=== PATIENT | male | born 2000 | race Native Hawaiian/Other Pacific Islander ===

== ENCOUNTER 2018-01-22 03:20 | Emergency (ER) | payer OTHER ==
[~2018-01-22] VITALS: Ht 175.3 cm; Wt 80.0 kg
[2018-01-22 03:23] VITALS: BP 131/67; PULSE 63; RESP 16; TEMP 97.4; O2SAT 97
[2018-01-22] MEDS ORDERED: IBUPROFEN 800 MG TAB PO ONE (04:00)
[2018-01-22] MEDS ORDERED: DICL75TA PO (04:08)
--- NOTE | 2018-01-22 04:08 | PD ---
HPI Chief Complaint: Injury Time Seen by Provider: 03:36 Travel History International Travel<30 days: No Contact w/Intl Traveler<30days: No Traveled to known affect area: No History of Present Illness HPI 17-year-old male presents emergency department with complaints of right calf pain after a skydiving injury earlier yesterday afternoon. Patient states that he was taking a tandem dive when they landed he bent his left leg up underneath him. He states that he had pain in the posterior portion of his calf up into his knee. Since then it has persisted. He denied any popping or cracking. He denies any pain in his foot ankle knee or hip. He denies any acute sensory changes. He did not hurt his head, neck or back. Symptoms are mild but become moderate with movement and attempting to walk. PFSH Past Medical History Medical History: Denies Significant Hx Past Surgical History Surgical History: No Previous Surgery Social History Alcohol Use: No Tobacco Use: No Substance Use: No Allergies-Medications (Allergen,Severity, Reaction): Coded Allergies: No Known Allergies (Unverified , 01/22/18) Review of Systems General / Constitutional: No: Fever Eyes: No: Visual changes HENT: No: Headaches Cardiovascular: No: Chest Pain or Discomfort Respiratory: No: Shortness of Breath Gastrointestinal: No: Abdominal Pain Genitourinary: No: Dysuria Musculoskeletal: Positive: Myalgias, Limited ROM, Cramping, Pain, No: Weakness , Edema Skin: No Rash Neurologic: No: Weakness Psychiatric: No: Depression Endocrine: No: Polydipsia Hematologic/Lymphatic: No: Easy Bruising Physical Exam Narrative GENERAL: Well-developed, well-nourished in no apparent distress. Nontoxic appearing. HEAD: Normocephalic, atraumatic. EYES: Pupils equal round and reactive. Extraocular motions intact. No scleral icterus. No injection or drainage. ENT: Nose clear. Throat without erythema, tonsillar hypertrophy or exudate. Uvula midline. Airway patent. NECK: Trachea midline. Supple, nontender, moves head freely. No central bony tenderness or spasm. CARDIOVASCULAR: Regular rate and rhythm without murmurs, gallops, or rubs. RESPIRATORY: Clear to auscultation. Breath sounds equal bilaterally. No wheezes , rales, or rhonchi. GASTROINTESTINAL: Abdomen soft, non-tender, nondistended. No hepato-splenomegaly , or palpable masses. No guarding. EXTREMITIES: No clubbing, cyanosis, or edema. No joint tenderness. Patient has tenderness to the posterior right calf up into the posterior popliteal fossa. There is no edema, erythema, warmth or ecchymosis. There is no bony tenderness in the foot, ankle, knee, hip. No instability of the knee. No Homans sign. Neurovascular intact distally. BACK: Nontender without deformity. No flank tenderness. NEUROLOGICAL: Awake, alert and oriented x 3 .Cranial nerves grossly intact. Motor and sensory grossly within normal limits. Normal speech. Data Data Last Documented VS Vital Signs Date Time Temp Pulse Resp B/P (MAP) Pulse Ox O2 Delivery O2 Flow Rate FiO2 01/22/18 03:23 97.4 63 16 131/67 (88) 97 Orders Orders Tibia/Fibula (Ap/Lat) (01/22/18 03:46) Splint Or Brace Apply/Monitor (01/22/18 03:46) Crutches (01/22/18 03:46) Ibuprofen (Motrin) (01/22/18 04:00) MDM Medical Decision Making Medical Screen Exam Complete: Yes Emergency Medical Condition: Yes Medical Record Reviewed: Yes Interpretation(s) Right tib-fib: Negative for acute bony injury Differential Diagnosis MDM: High Differential diagnoses: Fracture, sprain, strain, dislocation, contusion, neurovascular injury Narrative Course This is right calf strain. X-ray is negative. Patient is placed in a [place] compression dressing, Motrin 800 mg p.o. and crutches. Diagnosis Primary Impression: Right calf strain Patient Instructions: General Instructions Additional Instructions: Rest. Elevation. Ice packs for the next 3 days. Daniel wrap and crutches. No weight-bearing and then progress to weight-bearing as tolerated. Medications as directed Follow-up with an orthopedist or your doctor in one week. Return to the ER if any problems Med/Other Pt SpecificInfo: Prescription(s) given Disposition: 01 DISCHARGE HOME Condition: Stable Newton Narvaez January 22, 2018 04:08
--- NOTE | 2018-01-22 04:41 | RADRPT ---
EXAM DATE/TIME: 01/22/2018 04:07 [facility] COMPARISON: No previous studies available for comparison. INDICATIONS : Right proximal tibia pain from trauma sustained skydiving. MEDICAL HISTORY : None. SURGICAL HISTORY : None. ENCOUNTER: Initial ACUITY: 1 day PAIN SCORE: 6/10 LOCATION: Right proximal tibia FINDINGS: Two view examination of the right tibia demonstrates no evidence of fracture or dislocation. Bony mi neralization is normal. The soft tissue structures are intact. CONCLUSION: Negative trauma study. Ishan Keating MD on January 22, 2018 at 4:39 Board Certified Radiologist. This report was verified electronically.
== END 2018-01-22 05:15 | disposition home or self-care (01) ==
LOC: NEPD 03:20
DX: S86.111A Strain of other muscle(s) and tendon(s) of posterior muscle group at lower leg level, right leg, initial encounter (principal); X50.1XXA Overexertion from prolonged static or awkward postures, initial encounter; Y93.39 Activity, other involving climbing, rappelling and jumping off
CPT/HCPCS: 73590; 99283; E0113